=== PATIENT | male | born 2000 | race American Indian/Alaskan Native ===

== ENCOUNTER 2022-01-29 18:36 | Emergency (ER) | payer BC ==
[2022-01-29] MEDS ORDERED: traMADol 50 MG TAB PO ONE (22:59)
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
[2022-01-29 23:27] VITALS: BP 138/77
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
== END 2022-01-30 00:48 | disposition home or self-care (01) ==
LOC: ED 18:36
DX: S43.401A Unspecified sprain of right shoulder joint, initial encounter (principal); S16.1XXA Strain of muscle, fascia and tendon at neck level, initial encounter; V89.2XXA Person injured in unspecified motor-vehicle accident, traffic, initial encounter; Y93.89 Activity, other specified; Y92.89 Other specified places as the place of occurrence of the external cause; Y99.8 Other external cause status
CPT/HCPCS: 72040; 99283